=== PATIENT | female | born 1980 | race Caucasian/White ===

== ENCOUNTER 2018-01-21 09:52 | Emergency (ER) | payer OTHER ==
[~2018-01-21] VITALS: Ht 157.5 cm; Wt 59.4 kg
[2018-01-21 09:57] VITALS: BP 113/70
--- NOTE | 2018-01-21 10:05 | NUR ---
PATIENT AMBULATED TO BED 7 AT THIS TIME.
--- NOTE | 2018-01-21 10:08 | NUR ---
PT. CAME INTO THE ED W/ C/O OF VAGINAL BLEEDING AND LOWER ABD PAIN X 2 WEEKS. PT. STATES " i HAVE BEEN SPOTTING FOR 2 WEEKS AND I HAD SOME TISSUE COME OUT LAST WEEK AND MY PAIN IN MY LOWER STOMACH HAS GOTTEN WORSE SINCE LAST WEEK". PT. IS AAOX4 , RR EVEN AND UNLABORED, DENIES N/V/D. RR EVEN AND UNLABORED. DENIES ANY FEVERS AND CHILLS. PT STATES SHE HAS BEEN SPOTTING FOR 2 WEEKS BUT NOT SOAKING UP PADS. ER NOTIFIED. WILL CONTINUE TO MONITOR.
[2018-01-21 10:26] VITALS: BP 113/70
--- NOTE | 2018-01-21 10:26 | NUR ---
Patient discharged with v/s stable. Written and verbal after care instructions given and explained. Patient alert, oriented and verbalized understanding of instructions. Ambulatory with steady gait. All questions addressed prior to discharge. ID band removed. Patient advised to follow up with PMD. Rx of MOTRIN 600MG , AND PROVERA given. Patient educated on indication of medication including possible reaction and side effects. Opportunity to ask questions provided and answered.
== END 2018-01-21 10:26 | disposition home or self-care (01) ==
LOC: MED 09:52
DX: N93.8 Other specified abnormal uterine and vaginal bleeding (principal)
CPT/HCPCS: 81002; 81025; 99283